=== PATIENT | male | born 1945 | race Caucasian/White ===

== ENCOUNTER 2017-04-07 09:51 | Emergency (ER) | payer OTHER ==
[~2017-04-07] VITALS: Ht 170.2 cm; Wt 80.0 kg
[2017-04-07 09:53] VITALS: BP 139/60; PULSE 79; RESP 18; TEMP 98.5; O2SAT 95
--- NOTE | 2017-04-07 10:29 | PD ---
HPI Chief Complaint: Cold / Flu Symptoms Time Seen by Provider: 10:17 Travel History International Travel<30 days: No Contact w/Intl Traveler<30days: No Traveled to known affect area: No History of Present Illness HPI 72yo M with PMH of parkinson's disease from assisted living facility presents to the ED with c/o cough for a few days. States he has midsternal chest and rib pain only with cough. Associated with mild sob with cough. Denies any fever, n/v, abdominal pain. Pt has slurred speech but from Parkinson's and as per sister is at baseline mental status. Sister also states he fell a few months ago and has been having left shoulder pain but have never had imaging. PFSH Past Medical History Depression: Yes GERD: Yes Medical other: Yes (recurrent falls) Neurologic: Yes (peripheral neuropathy) Parkinson's Disease: Yes Tetanus Vaccination: < 5 Years Past Surgical History Eye Surgery: Yes (lasix) Social History Alcohol Use: No Tobacco Use: No Substance Use: No Allergies-Medications (Allergen,Severity, Reaction): Coded Allergies: No Known Allergies (Unverified , 04/07/17) Reported Meds & Prescriptions Reported Meds & Active Scripts Active Reported Mapap (Acetaminophen) 325 Mg Tab 325 Mg PO Q4-6H PRN Naproxen 500 Mg Tab 500 Mg PO BID Artificial Tears Opth Drops (Polyvinyl Alcohol) 1.4% Soln 1-2 Drop EACH EYE PRN PRN Genteal Severe Opth Gel (Hypromellose) 0.25-0.3% Gel 1 Drop EACH EYE DIRECTED PRN Milk of Magnesia Liq (Magnesium Hydroxide) 400 Mg/5 Ml Susp 30 Ml PO DAILY PRN Bisacodyl EC (Bisacodyl) 5 Mg Tabec 5 Mg PO DAILY PRN Carbidopa-Levodopa 25-250 Mg Tab 1 Tab PO Q8HR Ropinirole 2 Mg Tab 2.5 Mg PO TID Amantadine (Amantadine HCl) 100 Mg Tab 100 Mg PO TID Brimonidine Opth Drops (Brimonidine Tartrate) 0.2% Soln 1 Drop RIGHT EYE BID Multi-Vitamin Daily (Multiple Vitamin) 1 Tab Tab 1 Tab PO DAILY Gabapentin 100 Mg Cap 100 Mg PO BID Entacapone 200 Mg Tab 200 Mg PO BID administered concomitantly with each levodopa/carbidopa dose Sertraline (Sertraline HCl) 25 Mg Tab 25 Mg PO DAILY Omeprazole 40 Mg Cap 40 Mg PO DAILY Aspirin Low Dose (Aspirin) 81 Mg Chew 81 Mg CHEW DAILY Review of Systems Except as stated in HPI: all other systems reviewed are Neg Physical Exam Narrative GENERAL: 72yo M not in distress. SKIN: Focused skin assessment warm/dry. HEAD: Atraumatic. Normocephalic. EYES: Pupils equal and round. No scleral icterus. No injection or drainage. ENT: No nasal bleeding or discharge. Mucous membranes pink and moist. NECK: Trachea midline. No JVD. CARDIOVASCULAR: Regular rate and rhythm. No murmur appreciated. RESPIRATORY: No accessory muscle use. Clear to auscultation. Breath sounds equal bilaterally. GASTROINTESTINAL: Abdomen soft, non-tender, nondistended. MUSCULOSKELETAL: No obvious deformities. No clubbing. No cyanosis. No edema. NEUROLOGICAL: Awake and alert. No obvious cranial nerve deficits. Motor grossly within normal limits. Normal speech. PSYCHIATRIC: Appropriate mood and affect; insight and judgment normal. Data Data Last Documented VS Vital Signs Date Time Temp Pulse Resp B/P Pulse Ox O2 Delivery O2 Flow Rate FiO2 04/07/17 12:04 72 20 98 Room Air 04/07/17 09:53 98.5 139/60 Orders Electrocardiogram (04/07/17 10:24) Basic Metabolic Panel (Bmp) (04/07/17 10:24) Ckmb (Isoenzyme) Profile (04/07/17 10:24) Complete Blood Count With Diff (04/07/17 10:24) Magnesium (Mg) (04/07/17 10:24) Prothrombin Time / Inr (Pt) (04/07/17 10:24) Act Partial Throm Time (Ptt) (04/07/17 10:24) Troponin I (04/07/17 10:24) Chest, Single Ap (04/07/17 10:24) Ecg Monitoring (04/07/17 10:24) Bilateral Bp Monitoring (04/07/17 10:24) Iv Access Insert/Monitor (04/07/17 10:24) Oximetry (04/07/17 10:24) Oxygen Administration (04/07/17 10:24) Shoulder, Limited(2vws) (04/07/17 ) CKMB (04/07/17 10:30) CKMB% (04/07/17 10:30) Sodium Chlor 0.9% 1000 Ml Inj (Ns 1000 M (04/07/17 12:45) Acetaminophen (Tylenol) (04/07/17 14:15) Diet Heart Healthy (04/07/17 Dinner) Carbidopa-Levodopa 25-250 Mg (Sinemet 25 (04/07/17 14:30) Labs Laboratory Tests Test 04/07/17 10:30 White Blood Count 7.5 TH/MM3 Red Blood Count 5.13 MIL/MM3 Hemoglobin 14.9 GM/DL Hematocrit 44.1 % Mean Corpuscular Volume 86.1 FL Mean Corpuscular Hemoglobin 29.1 PG Mean Corpuscular Hemoglobin 33.8 % Concent Red Cell Distribution Width 13.7 % Platelet Count 226 TH/MM3 Mean Platelet Volume 8.6 FL Neutrophils (%) (Auto) 52.4 % Lymphocytes (%) (Auto) 31.0 % Monocytes (%) (Auto) 13.5 % Eosinophils (%) (Auto) 2.2 % Basophils (%) (Auto) 0.9 % Neutrophils # (Auto) 3.9 TH/MM3 Lymphocytes # (Auto) 2.3 TH/MM3 Monocytes # (Auto) 1.0 TH/MM3 Eosinophils # (Auto) 0.2 TH/MM3 Basophils # (Auto) 0.1 TH/MM3 CBC Comment DIFF FINAL Differential Comment Prothrombin Time 11.1 SEC Prothromb Time International 1.0 RATIO Ratio Activated Partial 33.4 SEC Thromboplast Time Sodium Level 138 MEQ/L Potassium Level 4.3 MEQ/L Chloride Level 105 MEQ/L Carbon Dioxide Level 22.7 MEQ/L Anion Gap 10 MEQ/L Blood Urea Nitrogen 24 MG/DL Creatinine 1.08 MG/DL Estimat Glomerular Filtration 68 ML/MIN Rate Random Glucose 107 MG/DL Calcium Level 9.1 MG/DL Magnesium Level 2.3 MG/DL Total Creatine Kinase 1031 U/L Creatine Kinase MB 3.2 NG/ML Creatine Kinase MB % 0.3 % Troponin I LESS THAN 0.02 NG/ML MDM Medical Decision Making Medical Screen Exam Complete: Yes Emergency Medical Condition: Yes Interpretation(s) EKG was unable to be obtained because of interference with deep brain stimulator. I was able to obtain isolated leads from monitor and I do not see any acute ST segment elevation. TWI III. Differential Diagnosis Pneumonia vs. URI vs. dehydration vs. fracture Narrative Course 72yo M with Parkinson's here with cough for a few days and chest pain and sob only with cough. Pt currently has no chest pain. Pt has a deep neural stimulator for Parkinson and because of the interference, was not able to obtain a 12 lead EKG. I discussed with Dr. Duron who does not recommend turning it off. The [employer] sales representative and assessor is in [place] and available to come today. His chest pain does not sound cardiac in origin and will not turn off the stimulator at this time. Labs reviewed, no leukocytosis. Troponin negative. CPK is elevated at 1031. BUN is also elevated at 24. CXR negative. Xray left shoulder normal. Pt given NS IVF x1 liter. I discussed with Dr. Winslow who thinks that pt does not have to be admitted for rhabdomyolysis because he already received NS IVF. Pt is tolerating PO. Will have pt follow up with PMD. Diagnosis Primary Impression: URI (upper respiratory infection) Qualified Code: J06.9 - Upper respiratory tract infection, unspecified type Additional Impression: Dehydration Patient Instructions: General Instructions Departure Forms: Tests/Procedures Additional Instructions: Please return to the ED if you have chest pain or any other concerning symptoms. Med/Other Pt SpecificInfo: Prescription(s) given Scripts Acetaminophen (Tylenol)325 Mg Eqo075 Mg PO Q4H PRN (PAIN SCALE 1 TO 4) #20 TAB Ref 0 Prov:Makayla Hurst DO 04/07/17 Dextromethorphan (Robitussin Lingering Cold)15 Mg Cap30 Mg PO Q8H PRN (COUGH) 5 Days Ref 0 Prov:Makayla Hurst DO 04/07/17 Disposition: 03 DISCHARGE TO SNF Condition: Stable Makayla Hrust DO Apr 07, 2017 10:29
[2017-04-07 10:50] LABS: AUTOMATED NEUTROPHIL # 3.9 TH/MM3 (1.8-7.7); BASOPHIL # 0.1 TH/MM3 (0-0.2); BASOPHIL % 0.9 % (0.0-2.0); EOSINOPHIL # 0.2 TH/MM3 (0-0.4); EOSINOPHIL % 2.2 % (0.0-4.0); HEMATOCRIT 44.1 % (39.0-51.0); HEMO FLAGS DIFF FINAL; LYMPHOCYTE # 2.3 TH/MM3 (1.0-4.8); MEAN CELL VOLUME 86.1 FL (80.0-100.0); MEAN CORPUSCULAR HEMOGLOBIN 29.1 PG (27.0-34.0); MEAN CORPUSCULAR HGB CONC 33.8 % (32.0-36.0); MONO % 13.5 % (0.0-8.0); NEUT % 52.4 % (16.0-70.0); PLATELET COUNT 226 TH/MM3 (150-450); RED BLOOD COUNT 5.13 MIL/MM3 (4.50-5.90); RED CELL DISTRIBUTION WIDTH 13.7 % (11.6-17.2); WHITE BLOOD COUNT 7.5 TH/MM3 (4.0-11.0)
[2017-04-07 11:03] LABS: APTT (PATIENT) 33.4 SEC (24.3-30.1); PROTHROMBIN TIME - PATIENT 11.1 SEC (9.8-11.6)
[2017-04-07] MEDS ORDERED: CARB25TA12 PO (11:04)
[2017-04-07] MEDS ORDERED: ROPI2TAB PO (11:04)
[2017-04-07] MEDS ORDERED: MAPA325T PO (11:04)
[2017-04-07] MEDS ORDERED: NAPR500T PO (11:04)
[2017-04-07] MEDS ORDERED: ASPI81CH37 CHEW (11:04)
[2017-04-07] MEDS ORDERED: CARB25TA9 PO (11:04)
[2017-04-07] MEDS ORDERED: GENT0.3G EACH EYE (11:04)
[2017-04-07] MEDS ORDERED: AMAN100T PO (11:04)
[2017-04-07] MEDS ORDERED: OMEP40CA2 PO (11:04)
[2017-04-07] MEDS ORDERED: FLEE5TAB PO (11:04)
[2017-04-07] MEDS ORDERED: MILKSUS PO (11:04)
[2017-04-07] MEDS ORDERED: ENTA1TAB PO (11:04)
[2017-04-07] MEDS ORDERED: GABA100C4 PO (11:04)
[2017-04-07] MEDS ORDERED: MULT-65 PO (11:04)
[2017-04-07] MEDS ORDERED: POLY99.0 EACH EYE (11:04)
[2017-04-07] MEDS ORDERED: BRIM0.2S4 RIGHT EYE (11:04)
[2017-04-07] MEDS ORDERED: SERT25TA83 PO (11:04)
[2017-04-07 11:10] LABS: ANION GAP 10 MEQ/L (5-15); BICARBONATE 22.7 MEQ/L (21.0-32.0); BLOOD UREA NITROGEN 24 MG/DL (7-18); CHLORIDE 105 MEQ/L (98-107); GLOMERULAR FILTRATION RATE 68 ML/MIN (>89); MAGNESIUM 2.3 MG/DL (1.5-2.5); POTASSIUM 4.3 MEQ/L (3.5-5.1); SODIUM (NA) 138 MEQ/L (136-145)
[2017-04-07 11:24] LABS: CREATINE KINASE 1031 U/L (39-308)
[2017-04-07 11:36] LABS: CKMB 3.2 NG/ML (0.5-3.6)
[2017-04-07 12:04] VITALS: PULSE 72; RESP 20; O2SAT 98
--- NOTE | 2017-04-07 12:07 | RADRPT ---
EXAM DATE/TIME: 04/07/2017 12:05 [facility] COMPARISON: No previous studies available for comparison. INDICATIONS : Pain shoulder with motion. MEDICAL HISTORY : Parkinsons SURGICAL HISTORY : Stimulator for Parkinsons. ENCOUNTER: Initial ACUITY: 3 days PAIN SCORE: 5/10 LOCATION: Left shoulder FINDINGS: Two view examination of the left shoulder demonstrates no evidence of fracture or dislocation. The g lenohumeral and acromioclavicular joints are maintained. Bony mineralization is normal. CONCLUSION: Normal examination for a patient of this age. Gabriel Shi MD on April 07, 2017 at 12:04 Board Certified Radiologist. This report was verified electronically.
--- NOTE | 2017-04-07 12:11 | RADRPT ---
EXAM DATE/TIME: 04/07/2017 11:59 [facility] COMPARISON: No previous studies available for comparison. INDICATIONS : Cough with wheezing x3 days. Short of breath. MEDICAL HISTORY : Parkinsons SURGICAL HISTORY : Stimulator for Parkinsons ENCOUNTER: Initial ACUITY: 3 days PAIN SCORE: 0/10 LOCATION: Bilateral chest FINDINGS: Stimulator is noted. The lungs are clear. The heart and pulmonary vascularity are normal. The porti on of the bony skeleton visualized is unremarkable. CONCLUSION: No acute disease. Dylan Escalante MD FACR on April 07, 2017 at 12:08 Board Certified Radiologist. This report was verified electronically.
[2017-04-07] MEDS ORDERED: SODIUM CHLOR 0.9% 1000 ML INJ 1,000 ML IV ONE (12:45)
[2017-04-07] MEDS ORDERED: ACETAMINOPHEN 500 MG CPLT PO ONE (14:15)
[2017-04-07] MEDS ORDERED: ROBICAP2 PO (14:23)
[2017-04-07] MEDS ORDERED: TYLE325T PO (14:23)
[2017-04-07] MEDS ORDERED: CARBIDOPA/LEVODOPA 25 MG/250 MG TAB PO ONE (14:30)
[2017-04-07] MEDS ORDERED: guaiFENesin SOLUTION 200 MG/10 ML CUP PO ONE (14:30)
[2017-04-07 15:12] VITALS: BP_SYST 129; BP_SYST 131; BP_DIAS 71; BP_DIAS 74; PULSE 78; RESP 18; O2SAT 98
== END 2017-04-07 15:18 ==
LOC: NEPC 09:51
DX: J06.9 Acute upper respiratory infection, unspecified (principal); E86.0 Dehydration; G20 Parkinson's disease; G62.9 Polyneuropathy, unspecified; F32.9 Major depressive disorder, single episode, unspecified
CPT/HCPCS: 71010; 73030; 80048; 82550; 82552; 83735; 84484; 85025; 85610; 85730; 96360; 99284; J7030